=== PATIENT | male | born 1995 ===

== ENCOUNTER 2018-04-27 10:11 | Emergency (ER) | payer OTHER ==
[~2018-04-27] VITALS: Ht 177.8 cm; Wt 86.2 kg
[2018-04-27] MEDS ORDERED: ZYRTEC10 M3 (10:36)
== END 2018-04-27 13:24 | disposition home or self-care (01) ==
LOC: ER 10:11 → EDBD 10:22 → ER 13:24
DX: N39.0 Urinary tract infection, site not specified (principal)